=== PATIENT | male | born 1985 | race Caucasian/White ===

== ENCOUNTER 2023-11-14 17:10 | Emergency (ER) | payer MEDICAID ==
[~2023-11-14] VITALS: Ht 177.8 cm; Wt 75.3 kg
[2023-11-14 17:16] VITALS: BP 100/76; PULSE 75; RESP 19; TEMP 98.3; O2SAT 99
[2023-11-14 18:06] LABS: BASOPHILS % (AUTO) 0.3 % (0.0-2.0); EOSINOPHILS # (AUTO) 0.6 K/uL (0-0.4); EOSINOPHILS % (AUTO) 6.7 % (0.0-4.0); HEMATOCRIT 43.8 % (36-52); HEMOGLOBIN 14.5 g/dL (12.0-18.0); LYMPHOCYTES # (AUTO) 0.7 K/uL (2.0-11.5); MEAN CORPUSCULAR HEMOGLOBIN 29 pg (27-31); MEAN CORPUSCULAR HGB CONC 33 g/dL (33-37); MEAN CORPUSCULAR VOLUME 88.4 fL (80-94); MONOCYTES # (AUTO) 0.6 K/uL (0.8-1.0); MONOCYTES % (AUTO) 6.8 % (1.7-9.3); NEUTROPHILS # (AUTO) 6.7 K/uL (1.8-7.7); NEUTROPHILS % (AUTO) 77.9 % (42.2-75.2); PLATELET COUNT (AUTO) 277 K/uL (140-450); RED BLOOD CELL COUNT(AUTO) 4.95 MIL/uL (4.20-6.10); WHITE BLOOD COUNT (AUTO) 8.5 K/uL (4.8-10.8)
[2023-11-14 18:09] LABS: LYMPHOCYTES % (AUTO) 8.3 % (20.5-51.1)
[2023-11-14 18:11] VITALS: O2SAT 99
[2023-11-14] MEDS: NACL 0.9% 1,000 ML IV ONE (18:13)
[2023-11-14 18:15] LABS: ANION GAP 11.5 (8-16); CALCIUM 9.7 mg/dL (8.5-10.1); CARBON DIOXIDE 30.4 mmol/L (21-32); CREATININE 1.1 mg/dL (0.6-1.3); POTASSIUM 3.9 mmol/L (3.5-5.1)
[2023-11-14 18:16] LABS: FLU A ANTIGEN negative (NEGATIVE); FLU B ANTIGEN NEGATIVE (NEGATIVE)
[2023-11-14 18:19] LABS: BILIRUBIN,DIRECT 0.1 mg/dL (0.0-0.3); TOTAL BILIRUBIN 0.5 mg/dL (0.0-1.0); TOTAL PROTEIN, SERUM 8.4 g/dL (6.4-8.2)
[2023-11-14] MEDS: ONDANSETRON 4 MG/2 ML VIAL IVP ONE (18:22)
[2023-11-14] MEDS: FAMOTIDINE 20 MG/2 ML VIAL IVP ONE (18:23)
[2023-11-14] MEDS ORDERED: ONDA-188 SL (18:55)
[2023-11-14] MEDS ORDERED: FAMO-90 PO (18:55)
[2023-11-14 19:18] VITALS: BP 100/76; PULSE 75; RESP 19; TEMP 98.3; O2SAT 99
== END 2023-11-14 19:03 | disposition home or self-care (01) ==
LOC: MED 17:10
DX: R11.10 Vomiting, unspecified (principal); R19.7 Diarrhea, unspecified; R50.9 Fever, unspecified; M79.10 Myalgia, unspecified site; Z20.822 Contact with and (suspected) exposure to COVID-19; Z79.1 Long term (current) use of non-steroidal anti-inflammatories (NSAID); Z79.899 Other long term (current) drug therapy
CPT/HCPCS: 36415; 80048; 80076; 83690; 85025; 87426; 87804; 96361; 96374; 96375; 99284; J2405; J3490; J7030